=== PATIENT | female | born 1990 | race Caucasian/White ===

== ENCOUNTER 2021-02-19 02:50 | Inpatient (IN) ==
[~2021-02-19 02:50] MED LIST: *HR* Nalbuphine 10 MG/ML AMPUL IV PRN; Azithromycin 500 MG in 0.9 % Sodium Chloride 250 ML IVPB PRN; Famotidine 20 MG/2 ML VIAL IVP PRN; Lidocaine 1% 20 ML MDV INFILT PRN; Metoclopramide 10 MG/2 ML VIAL IVP PRN; Naloxone 0.4 MG/ML INJ IVP PRN; Ondansetron 4 MG/2 ML VIAL IVP PRN; Ringers Solution, Lactated 1,000 ML ONE
[2021-02-19 03:32] LABS: Basophils # 0.1 K/mcL (0.0-0.2); Basophils % 0.5 %; Eosinophils # 0.1 K/mcL (0.0-0.6); Eosinophils % 0.5 %; Hematocrit 34.1 % (35.3-44.9); Hemoglobin 11.2 g/dL (11.5-15.4); Immature Granulocytes % 2.4 % (0-4); Lymphocytes # 1.7 K/mcL (0.6-4.6); Lymphocytes % 13.5 %; Mean Corpuscular HGB Conc 32.8 g/dL (31.6-35.5); Mean Corpuscular Hemoglobin 30.2 pg (28.0-33.3); Mean Corpuscular Volume 91.9 fL (83.0-100.0); Mean Platelet Volume 10.6 fL (9.4-12.4); Monocytes # 0.8 K/mcL (0.0-1.3); Monocytes % 6.1 %; Neutrophils # 9.8 K/mcL (1.6-8.9); Platelet Count 220 K/mcL (140-400); Red Blood Count 3.71 M/mcL (3.82-4.97); Red Cell Distribution Width 14.9 % (11.5-14.5); White Blood Count 12.7 K/mcL (4.3-11.1)
[2021-02-19 03:39] LABS: Alanine Aminotransferase 13 Units/L (7-52); Amphetamine Screen,Urine Negative ng/mL (Cutoff=1000); Aspartate Amino Transferase 16 Units/L (13-39); BUN/Creatinine Ratio 15 (6-26); Barbiturate Screen,Urine Negative ng/mL (Cutoff=200); Benzodiazepines Screen,Urine Negative ng/mL (Cutoff=200); Blood Urea Nitrogen 12 mg/dL (6-20); Cannabinoid Screen,Urine Negative ng/mL (Cutoff = 50); Cocaine Screen,Urine Negative ng/mL (Cutoff= 300); Lactate Dehydrogenase 202 Units/L (140-271); Opiate Screen,Urine Negative ng/mL (Cutoff=300); Phencyclidine Screen,Urine Negative ng/mL (Cutoff=25); Uric Acid 6.4 mg/dL (2.3-7.6); eGFR For African Americans > 60 (> 60); eGFR For Non-African Americans > 60 (> 60)
[2021-02-19 03:51] LABS: Influenza A PCR Negative (Negative); Influenza B PCR Negative (Negative); Resp. Syncytial Virus PCR Negative (Negative)
[2021-02-19 03:53] LABS: SARS-CoV-2 by PCR (In House) Negative (Negative)
[2021-02-19] MEDS ORDERED: Epidural Premix (fent/bupiv) 110 ML EP ONE (03:59)
[2021-02-19] MEDS ORDERED: EPHEDrine 50 MG/ML VIAL IVP PRN (04:20)
[2021-02-19] MEDS ORDERED: Epidural Premix (fent/bupiv) 110 ML EP SCH (04:30)
[2021-02-19 08:13] LABS: Creatinine,Urine 206 mg/dL
[2021-02-19] MEDS: Ringers Solution, Lactated 1,000 ML IVC SCH ×2 (08:28→14:45)
[2021-02-19] MEDS ORDERED: Oxytocin 20 units/ LR 1000 mL 20 UNIT/1,000 ML BAG IVC SCH ×2 (08:30→22:00)
[2021-02-19] MEDS ORDERED: *HR* FentaNYL (PF) 100 MCG/2 ML VIAL ONE (10:48)
[2021-02-19] MEDS ORDERED: *HR* Ropivacaine/PF 0.5% 20 ML VIAL ONE (10:48)
[2021-02-19] MEDS ORDERED: CeFAZolin Syr 3,000MG/30 ML 3,000 MG/30 ML SYRINGE IVPB ONE (15:44)
[2021-02-19] MEDS ORDERED: Metoclopramide 10 MG/2 ML VIAL IVP ONE (15:44)
[2021-02-19] MEDS ORDERED: Famotidine 20 MG/2 ML VIAL IVP ONE (15:44)
[2021-02-19] MEDS ORDERED: Lidocaine/EPI 1:200k 2% PF 20 ML VIAL ONE (15:48)
[2021-02-19] MEDS ORDERED: Ondansetron 4 MG/2 ML VIAL ONE (15:49)
[2021-02-19] MEDS ORDERED: Acetaminophen IV 1,000 MG/100 ML BAG IVPB ONE (16:22)
[2021-02-19] MEDS ORDERED: *HR* Morphine Sulfate/PF 10 MG/10 ML AMPUL ONE (16:25)
[2021-02-19] MEDS ORDERED: *HR* HYDROmorphone PF 0.5 MG/0.5 ML SYRINGE IVP PRN (16:43)
[2021-02-19] MEDS ORDERED: Ondansetron 4 MG/2 ML VIAL IVP PRN ×2 (16:43→21:50)
[2021-02-19] MEDS ORDERED: Promethazine 6.25 MG in Water for inj. (sterile) 20 ML IVPB PRN (16:43)
[2021-02-19] MEDS ORDERED: Ketorolac 30 MG/ML VIAL ONE (17:30)
[2021-02-19] MEDS ORDERED: Methylergonovine 0.2 MG/ML AMPUL IM ONE (19:13)
[2021-02-19] MEDS ORDERED: Metoclopramide 10 MG/2 ML VIAL IVP PRN (21:50)
[2021-02-19] MEDS ORDERED: Simethicone 80 MG TAB.CHEW PO PRN (21:50)
[2021-02-19] MEDS ORDERED: Naloxone 0.4 MG/ML INJ IVP PRN (21:50)
[2021-02-19] MEDS: Acetaminophen 325 MG TABLET PO SCH (22:05)
[2021-02-19] MEDS: *HR* OxyCODONE Immed Rel 5 MG TABLET PO PRN (23:14)
[2021-02-20] MEDS: Acetaminophen 325 MG TABLET PO SCH ×2 (02:51→18:51)
[2021-02-20] MEDS: Ibuprofen 600 MG TABLET PO SCH ×3 (02:51→18:51)
[2021-02-20 03:30] LABS: Basophils % 0.2 %; Eosinophils % 0.2 %; Hematocrit 26.3 % (35.3-44.9); Immature Granulocytes % 1.1 % (0-4); Lymphocytes # 1.3 K/mcL (0.6-4.6); Mean Corpuscular HGB Conc 33.1 g/dL (31.6-35.5); Mean Corpuscular Hemoglobin 30.5 pg (28.0-33.3); Mean Corpuscular Volume 92.3 fL (83.0-100.0); Mean Platelet Volume 10.4 fL (9.4-12.4); Monocytes # 1.1 K/mcL (0.0-1.3); Monocytes % 6.1 %; Neutrophils # 15.5 K/mcL (1.6-8.9); Platelet Count 181 K/mcL (140-400); Red Blood Count 2.85 M/mcL (3.82-4.97); Red Cell Distribution Width 14.8 % (11.5-14.5); Segmented Neutrophils % 85.4 %; White Blood Count 18.2 K/mcL (4.3-11.1)
[2021-02-20 03:31] LABS: Hemoglobin 8.7 g/dL (11.5-15.4)
[2021-02-20] MEDS: *HR* OxyCODONE Immed Rel 5 MG TABLET PO PRN ×3 (06:51→20:27)
[2021-02-20] MEDS: *HR* Enoxaparin 60 MG/0.6 ML SYRINGE SQ SCH ×2 (08:59→20:27)
[2021-02-20] MEDS: Prenatal Vit/FA 1 EACH TABLET PO SCH (09:00)
[2021-02-21] MEDS: Acetaminophen 325 MG TABLET PO SCH ×2 (02:03→08:25)
[2021-02-21] MEDS: Ibuprofen 600 MG TABLET PO SCH ×2 (02:03→08:25)
[2021-02-21] MEDS: *HR* OxyCODONE Immed Rel 5 MG TABLET PO PRN ×4 (03:02→17:21)
[2021-02-21] MEDS: Prenatal Vit/FA 1 EACH TABLET PO SCH (08:24)
[2021-02-21] MEDS: *HR* Enoxaparin 60 MG/0.6 ML SYRINGE SQ SCH (08:25)
[2021-02-21 09:09] VITALS: BP 107/60; PULSE 91; TEMP 98.1; O2SAT 95
== END 2021-02-21 19:14 | disposition home or self-care (01) | DRG 788 ==
LOC: 1NENULAB → 1NENUOBS 19:48
PROVIDERS: ADMIT Advanced Practice Midwife; ATTEND Advanced Practice Midwife